=== PATIENT | male | born 1990 | race Two or more races ===

== ENCOUNTER 2023-07-19 16:24 | Emergency (ER) | payer OTHER ==
[~2023-07-19] VITALS: Ht 182.9 cm; Wt 114.1 kg
[2023-07-19 17:29] LABS: BASOPHILS % (AUTO) 0.2 % (0.0-2.0); EOSINOPHILS % (AUTO) 0.7 % (1.0-6.0); HEMOGLOBIN 14.2 g/dL (13.5-17.5); LYMPHOCYTES # (AUTO) 1.6 K/uL (1.0-4.8); LYMPHOCYTES % (AUTO) 23.3 % (22.0-44.0); MEAN CORPUSCULAR HEMOGLOBIN 32.8 pg (26.0-34.0); MEAN CORPUSCULAR HGB CONC 33.8 G/dL (31.0-37.0); MEAN CORPUSCULAR VOLUME 97 fL (80-100); MONOCYTES # (AUTO) 0.8 K/uL (0.1-1.0); MONOCYTES % (AUTO) 12.5 % (2.0-9.0); NEUTROPHILS # (AUTO) 4.3 K/uL (1.8-7.7); NEUTROPHILS % (AUTO) 63.3 % (40.0-70.0); PLATELET COUNT (AUTO) 140 K/uL (150-450); RED BLOOD CELL COUNT(AUTO) 4.33 MIL/uL (4.50-5.90); RED CELL DISTRIBUTION WIDTH 13.7 % (11.5-14.5); WHITE BLOOD COUNT (AUTO) 6.8 K/uL (4.5-11.0)
[2023-07-19 17:41] LABS: ANION GAP 7 mmol/L (8-16); CALCIUM, TOTAL 9.1 mg/dL (8.8-10.5); CARBON DIOXIDE 28 mmol/L (22-29); CHLORIDE 101 mmol/L (98-107); CREATININE 0.65 mg/dL (0.60-1.30); GLOMERULAR FILTR. RATE CALC > 60 mL/min (>60); GLUCOSE,RANDOM 108 mg/dL (70-110); POTASSIUM 3.6 mmol/L (3.5-5.1); SODIUM SERUM 136 mmol/L (136-145); UREA NITROGEN, BLOOD 10 mg/dL (7-18)
[2023-07-19 17:43] LABS: INR 1.1 (0.9-1.1); PROTHROMBIN TIME 11.2 SEC (9.4-11.6)
[2023-07-19 17:46] LABS: ALANINE AMINOTRANSFERASE 130 U/L (12-78); ALBUMIN 3.6 g/dL (3.4-5.0); ALKALINE PHOSPHATASE 148 U/L (46-116); ASPARTATE AMINOTRANSFERASE 79 U/L (15-37); BILIRUBIN,TOTAL 0.6 mg/dL (0.1-1.0); LIPASE 15 U/L (16-77); TOTAL PROTEIN, SERUM 7.3 g/dL (6.4-8.2)
[2023-07-19] MEDS ORDERED: SODIUM CHLORIDE 0.9% 100 ML ONE (18:03)
[2023-07-19] MEDS ORDERED: IOHEXOL 350 MG/ML 100 ML VIAL ONE (18:03)
[2023-07-19] MEDS: ACETAMINOPHEN 500 MG TABLET PO ONE (18:18)
[2023-07-19 18:25] VITALS: TEMP 97.8
[2023-07-19 21:30] VITALS: BP 118/68; PULSE 62; RESP 16
[2023-07-19] MEDS: DOCUSATE SODIUM 100 MG CAPSULE PO ONE (22:42)
== END 2023-07-19 22:47 | disposition home or self-care (01) ==
LOC: EMS 16:24
DX: K62.5 Hemorrhage of anus and rectum (principal); F11.90 Opioid use, unspecified, uncomplicated
CPT/HCPCS: 99284; 74177; 80053; 83690; 85025; 85610; 85730; 36415; Q9967; J7050